=== PATIENT | female | born 1985 | race Hispanic/Latino ===

== ENCOUNTER 2021-12-05 19:00 | Outpatient (CLI) | payer BC | END 2021-12-05 19:01 | disposition home or self-care (01) | LOC: SLEEPLAB 19:00 | PROVIDERS: ATTEND Family Medicine | DX: G47.33 Obstructive sleep apnea (adult) (pediatric) (principal); G25.81 Restless legs syndrome; R53.83 Other fatigue; R40.0 Somnolence; R09.89 Other specified symptoms and signs involving the circulatory and respiratory systems; R51.9 Headache, unspecified; F41.9 Anxiety disorder, unspecified | CPT/HCPCS: 95810 ==

== ENCOUNTER 2024-01-15 14:29 | Outpatient (CLI) | payer BC | END 2024-01-15 14:30 | disposition home or self-care (01) | LOC: BICULT 14:29 | PROVIDERS: ATTEND Family Medicine | DX: R59.0 Localized enlarged lymph nodes (principal) | CPT/HCPCS: 76536 ==

== ENCOUNTER 2024-06-01 14:59 | Outpatient (CLI) | payer BC | END 2024-06-01 15:00 | disposition home or self-care (01) | LOC: SCSRAD 14:59 | PROVIDERS: ATTEND Family Medicine | DX: M70.62 Trochanteric bursitis, left hip (principal); M89.8X1 Other specified disorders of bone, shoulder ==

== ENCOUNTER 2024-06-23 14:35 | Outpatient (CLI) | payer BC | END 2024-06-23 14:36 | disposition home or self-care (01) | LOC: BICMAMMO 14:35 | PROVIDERS: ATTEND Obstetrics & Gynecology | DX: N64.4 Mastodynia (principal) | CPT/HCPCS: 77066; G0279 ==